=== PATIENT | female | born 1960 | race Caucasian/White ===

== ENCOUNTER 2016-09-27 23:00 | Inpatient (IN) | payer MEDICARE, OTHER ==
[2016-09-25 20:34] LABS: BD FL LYMPH (NOT ORD) 13 %; BF BASO (NOT OF) 0 %; BF LARGE MONONUCLEAR 8 %; BODY FLUID EOS (NOT ORD) 0 %; BODY FLUID SEG (NOT ORD) 79 %
[2016-09-25 20:35] LABS: BD FL SOURCE (NOT ORD) JOINT; BF TOTAL CELL CT (NOT ORD 1506 /MM3; BODY FLUID RBC (NOT ORD) 86000 /MM3
--- NOTE | ~2016-09-27 | OP ---
Record Of Operation [facility] [address] [place]. [address] NAME: JUSTYNA PUENTE : 58 STATUS : ADM Radha PAT#: [id number] AGE: 56 ADM/REG DATE : 09/28/16 MR#: [id number] REPORT SERV DATE: 09/28/16 DICTATED BY: ALEE GARCIA DATE: 09/28/16 REPORT STATUS : Draft TRANSCRIBED BY: MODL DATE: 09/28/16 DATE OF PROCEDURE: 09/28/2016 PREOPERATIVE DIAGNOSIS: Right septic prepatellar bursitis. POSTOPERATIVE DIAGNOSIS: Right septic prepatellar bursitis without extension to underlying hardware and prosthesis. PROCEDURE PERFORMED: Right prepatellar bursal irrigation and debridement with closure over Hemovac drain. SURGEON: Alee Garcia M.D. COMPUTERIZED MACHINE FABRIC CUTTER: Hugh Dyer. ANESTHESIA: General. PROCEDURE IN DETAIL: The patient is clearly identified, and after obtaining informed consent, she is brought to the operating room at [facility] where she is induced under general anesthesia, has her right lower extremity prepped and draped in the usual manner. Her previously utilized incision is marked and subsequently utilizing approximately 3 inches of the anterior aspect of the incision where it is erythematous and full with the medial punctate wound with pus. Skin was divided gently into a small pocket of approximately 8 x 20 cm in size, not very thick, containing watery pus. This communicates directly to the small punctate wound, which is then explored. There was some PDS suture through the area from previous incision, this was all carefully removed and the skin edges are carefully debrided of a few millimeter circumferentially back to good solid tissues. Careful inspection reveals no evidence of any extension through or near the fascial planes in towards the total knee arthroplasty or hardware of the fracture that was present previously and healed. This all concluded, the wound was copiously irrigated extensively and then carefully closed over medium Hemovac with PDS and jo including the small elliptical wound more medially around the site of drainage. This concluded, the leg was carefully cleansed and dressed. The patient was allowed to awaken and was transferred to the recovery room in stable condition having tolerated the procedure well. ESTIMATED BLOOD LOSS: 25 mL. FLUIDS: 1300 mL. TOURNIQUET TIME: 11 minutes (the tourniquet is deflated after debridements performed). PATHOLOGY: Sent specimen. MICROBIOLOGY: Sent specimen. COMPLICATIONS: None. Record Of Operation [address] [place]. [address] NAME: JUSTYNA PUENTE : 58 STATUS : ADM Radha PAT#: [id number] AGE: 56 ADM/REG DATE : 09/28/16 MR#: [id number] REPORT SERV DATE: 09/28/16 DICTATED BY: ALEE GARCIA DATE: 09/28/16 REPORT STATUS : Draft TRANSCRIBED BY: MODL DATE: 09/28/16 SPONGE AND NEEDLE COUNTS: Reportedly correct. ANTIBIOTICS: Administered appropriately preoperatively and continued postoperatively in light of infection. AMBER/FREDERICK Alee Garcia M.D. / [id number] CC: Galina Chavez MONICA N
--- NOTE | ~2016-09-27 | DS ---
Discharge Summary [address] [place]. [address] NAME: JUSTYNA PUENTE : 58 STATUS : DIS IN PAT#: [id number] AGE: 56 ADM/REG DATE : 09/28/16 MR#: [id number] REPORT SERV DATE: 10/11/16 DICTATED BY: XU LYNCH DATE: 10/10/16 REPORT STATUS : Draft TRANSCRIBED BY: FREDERICK DATE: 10/10/16 Data Collection from hospitalization DISCHARGE DIAGNOSES: 1. Right septic prepatellar bursitis without extension to underlying hardware and prosthesis. 2. Hypertension. 3. Fibromyalgia. 4. Depression. 5. Arthritis. 6. Hiatal hernia. 7. Sleep apnea. CONSULTATIONS: Milan Blanton M.D. PROCEDURES: Right prepatellar bursal irrigation and debridement with closure over Hemovac drain 09/28/2016. PATHOLOGY: DISCHARGE MEDICATIONS: 1. Tylenol 1000 mg every four hours as needed. 2. DuoNeb inhaled solution one nebulized inhaler every four hours as needed. 3. ProAir two puffs via inhaler every four hours as needed. 4. Xanax 2 mg three times a day. 5. Lipitor 10 mg every morning. 6. Soma 350 mg four times a day. 7. Restasis one drop twice a day. 8. Clarinex 5 mg daily. 9. Dexilant 120 mg daily. 10.Docusate sodium 100 mg twice a day. 11.Ferrous sulfate 300 mg twice a day. 12.Flonase nasal spray two sprays nasally daily as needed. 13.Neurontin 800 mg four times a day. 14.Tresiba 80 units subcutaneously at bedtime. 15.Humalog per sliding scale as instructed. 16.Atrovent two puffs via inhaler every four hours as needed. 17.Xalatan one drop at bedtime. 18.Victoza 1.8 mg subcutaneously every morning. 19.Zestril 10 mg every morning. 20.Multivitamins as instructed. 21.Oxycodone 5 mg every four hours as needed. 22.Requip 4 mg at bedtime. 23.VESIcare 5 mg at bedtime. 24.Coumadin 5 mg daily as instructed. CONDITION AT DISCHARGE: Stable. Discharge Summary [place] [id number] [place]. [address] NAME: JUSTYNA PUENTE : 58 STATUS : DIS IN PAT#: [id number] AGE: 56 ADM/REG DATE : 09/28/16 MR#: [id number] REPORT SERV DATE: 10/11/16 DICTATED BY: XU LYNCH DATE: 10/10/16 REPORT STATUS : Draft TRANSCRIBED BY: MODMilagro DATE: 10/10/16 DISPOSITION: The patient was discharged home on an 1800-calorie diabetic diet with activities as instructed, to be followed by home health care. HOSPITAL COURSE: This is a 56-year-old female who has had multiple surgeries of the right knee. She had a total knee arthroplasty and then had revision and also a fracture. On 08/22/2016, she had a debridement and excision of prepatellar bursa by Dr. Lynch. She began having erythema and warmth around the knee and had it aspirated the week of this admission in the office by Dr. Tree Rodriguez. The aspiration was 1500 white blood cells, but it did grow out Staph aureus. She has been on oral antibiotics since that time. She came to the emergency room at this time due to new drainage that had been going on for 2 days and increasing erythema, pain, and warmth. She was admitted to the hospital for further evaluation and treatment. Upon admission, she was taken to the operating room by Dr. Andre Garcia where she underwent the above-mentioned procedure. She tolerated this well and there were no complications. White count was 15.7. Blood pressure was controlled. Postop day #1, she was doing well postoperatively. IV antibiotics were continued. She was evaluated by Occupational and Physical Therapy. She was seen by Dr. Milan Blanton. The patient was felt to have right septic prepatellar bursitis with MRSA. He recommended at least three weeks of antibiotic treatment. The patient has rheumatoid arthritis. She was asked to hold the [employer]. She has multiple prosthetic joints without signs of infection. On 09/30/2016, she was doing well. White count was 6.3. She had no edema. She remained afebrile. Her right knee culture had revealed MRSA. She had no acute complaints. She had no new joint pain. She had good range of motion of the right knee. She continued to progress. Discharge planning was performed. On 10/02/2016, a PICC line had been inserted. She was alert and cooperative. She had no focal deficits. She had normal distal pulses. We encouraged her to mobilize with Physical Therapy. IV vancomycin continued. Leukocytosis had resolved. Discharge instructions were given. Due to her improved and stable condition, she was discharged home to be followed by home health care with the above-stated instructions. Information collected by: Celia Harris I submit the above information as my discharge summary. RUSSELL/FREDERICK Marcela Lynch M.D. / [id number] CC: Galina Chavez NP Paul Cornea, M.D.
--- NOTE | ~2016-09-27 | HP ---
History And Physical [place] [id number] [facility] [place]. [address] NAME: JUSTYNA PUENTE : 58 STATUS : ADM Radha PAT#: [id number] AGE: 56 ADM/REG DATE : 09/28/16 MR#: [id number] REPORT SERV DATE: 09/28/16 DICTATED BY: DUSTY HANSEN DATE: 09/28/16 REPORT STATUS : Draft TRANSCRIBED BY: MODMilagro DATE: 09/28/16 DATE OF ADMISSION: 09/28/2016 CHIEF COMPLAINT: Right knee erythema warmth and drainage. HISTORY: The patient is a 56-year-old who has had multiple surgeries to the right knee. She had a total knee arthroplasty and then had a revision and also a fracture. She recently had back on 08/22 about 6 weeks ago she had a debridement and excision of prepatellar bursa by Dr. Ulloa. She started having erythema, warmth around the knee and had it aspirated this week in the office by OPAL Eugene. The aspiration was 1500 white blood cells, but it did grow out Staph aureus. She has been on oral antibiotics since that time. She came to the emergency department due to the new drainage that had been going on for 2 days, increasing erythema and pain and warmth. PAST MEDICAL HISTORY: Hypertension, fibromyalgia, depression, arthritis of multiple joints, hiatal hernia, sleep apnea. SURGICAL HISTORY: She has had bilateral total shoulders, bilateral total knees with revision on the right x2 and then a fracture. She has had a left total hip arthroplasty. Multiple other surgeries, carpal tunnel, cataracts, tubal ligation. ALLERGIES: GLUCOSTEROIDS, NSAIDS, MORPHINE, CECLOR. MEDICATIONS: Victoza, Humalog, Tresiba which is insulin degludec, VESIcare 5 mg, lisinopril, Flonase, Lipitor, cyclosporine ophthalmic solution, Xalatan, Neurontin, Soma, Dexilant, doxycycline, albuterol, ipratropium, Tylenol, DuoNeb, Requip. REVIEW OF SYSTEMS: Times 10 negative except for above. SOCIAL HISTORY: She is a nonsmoker and nondrinker. FAMILY HISTORY: Noncontributory. PHYSICAL EXAMINATION: GENERAL: Well-developed, well-nourished female, in no acute distress. HEENT: Normocephalic, atraumatic. RESPIRATORY: Nonlabored respirations. Equal chest rise bilaterally. EXTREMITIES: No cyanosis, clubbing, or edema. Multiple incisions over her knees and her hip, left hip. She has erythema over the right knee. MUSCULOSKELETAL: Erythema over the anterior portion of the right knee. Drainage from the center of the wound. Pain with range of motion. Tenderness to palpation around the knee. 2+ pulses. NEURO: Alert and oriented x3. PSYCH: Appropriate mood and affect. SKIN: Erythema around the right knee. No other rashes or lesions. Healed incisions over History And Physical [address] [address] NAME: JUSTYNA PUENTE : 58 STATUS : ADM Radha PAT#: [id number] AGE: 56 ADM/REG DATE : 09/28/16 MR#: [id number] REPORT SERV DATE: 09/28/16 DICTATED BY: DUSTY HANSEN DATE: 09/28/16 REPORT STATUS : Draft TRANSCRIBED BY: FREDERICK DATE: 09/28/16 both knees and left hip. DATA: X-rays revealed history of right revision total knee arthroplasty with lateral plate. ASSESSMENT AND PLAN: Cellulitis with drainage of the right knee. She had vancomycin in the emergency department. I am going to have her discuss her case with Dr. Ulloa and then we will keep her n.p.o. for possible surgery. FERN/FREDERICK Dusty Hansen MD / [id number] CC: Galina Chavez
[2016-09-27 20:35] LABS: BASOPHILS 0.3 %; BASOPHILS ABSOLUTE 0.04 10/3/uL (0.0-0.16); EOSINOPHILS 1.9 %; ER CBC TAT 0 Hrs 10 Mins; HEMATOCRIT 37.7 % (36.0-48.0); HEMOGLOBIN 12.2 g/dL (12.0-16.0); IMMATURE GRANULOCYTES 0.4 %; IMMATURE GRANULOCYTES ABSOLUTE 0.06 10/3/uL (0.0-0.11); LYMPHOCYTES 16.5 %; MANUAL DIFF NO %; MEAN CORPUS HGB CONC 32.4 g/dL (32.0-36.0); MEAN CORPUSCULAR HEMOGLOB 26.7 pg (26.0-34.0); MEAN CORPUSCULAR VOLUME 82.5 fL (80-100); MEAN PLATELET VOLUME 9.4 fL (9.2-13.0); MONOCYTES 6.5 %; MONOCYTES ABSOLUTE 1.03 10/3/uL (0.21-1.20); NEUTROPHILS 74.4 %; NEUTROPHILS ABSOLUTE 11.71 10/3/uL (2.02-8.40); PLATELET COUNT 248 10/3/uL (150-400); RBC DISTRIBUTION WIDTH 14.1 % (12.0-16.0); RED CELL COUNT 4.57 10/6/uL (4.0-5.6); WHITE BLOOD CELLS 15.7 10/3/uL (4.5-10.5)
[2016-09-27 20:43] LABS: INTERNATIONAL NORMAL RATI 2.1 UNITS (-); PARTIAL THROMBO TIME 42.2 SEC (22.5-37.2)
[2016-09-27 20:45] LABS: PROTIME (NOT ORD) 23.4 SEC (12.0-14.5)
[2016-09-27 20:50] LABS: A/G RATIO 0.6 (0.7-1.9); ALBUMIN 3.2 G/DL (3.5-5.0); ALKALINE PHOSPHATASE 171 U/L (45-117); BUN (BLOOD UREA NITROGEN) 20 MG/DL (6-23); CALCIUM, SERUM 9.5 MG/DL (8.5-10.4); CHLORIDE, SERUM 94 MMOL/L (96-112); CO2 (CARBON DIOXIDE) 31 MMOL/L (24-34); GFR AFRICAN AMERICAN 95 ML/MIN (>=60); GFR NON AFRICAN AMERICAN 82 ML/MIN (>=60); GLOBULIN 5.1 G/DL (2.5-4.1); GLUCOSE, SERUM 138 MG/DL (60-99); LACTATE 1.2 MMOL/L (0.3-2.4); SGOT(AST) 21 U/L (5-40); SGPT(ALT) 41 U/L (5-65); SODIUM, SERUM 137 MMOL/L (135-148); TOTAL BILIRUBIN 0.3 MG/DL (0-1.2); TOTAL PROTEIN 8.3 G/DL (6.0-8.5)
[~2016-09-27 23:00] MED LIST: ABILIFY10 PO; ACCUNE1 INH; ACCUNEB INH; ACET500CAP PO; ALBUTEROL5 INH; AMBIEN CR12.5 MG PO; AZELASTINE OPH; Ambien; C5; CLARINEX5 MG PO; COMBIPATCH TD; CYMBALTA60 PO; DUONEB INH; DURA100 TOP; FLONASE NAS; FLOVENT DISK50 MCG INH; FLURBIPROFEN100 MG OR; GAS X PO; GAS-X80 MG PO; HUMALOG SC; KOMBIGLYZE XR1 EAC2 PO; LEVEMIR SC; LIPITOR10 PO; LORCET PO; LORTAB 5 PO; LYRICA200 MG PO; MAX25 PO; MOBIC15 MG PO; NEUR600 PO; NEUR800 PO; ORENCIA250 MG IV; OS500+D PO; PATANOL OPH; PCET PO; PHENTERMINE37.5 MG PO; PREV30 PO; PRILO PO; PRILOSEC40 MG PO; PROAIR HFA INH; PROVIGIL2 PO; REMICADE IV; REQUIP4 MG PO; RESTASIS OPH; SAXENDA3 MG/0.5 M SQ; SOMATAB PO; SUCR PO; TOVIAZ PO; TRESIBA FL200 UNIT/1 SQ; TYLENOL PM PO; VESICARE10 MG PO; VESICARE5 PO; VICTOZA18 MG/3 ML SC; VITAMIN B-12 INJ IM; VITAMIN B-121000 MC1 SL; VOLT50 PO; VOLT75 PO; VOLTAREN1 % TOP; XALAT OPH; XANAX2 MG PO; XELJANZ5 MG PO; ZESTRIL10 MG PO; ZYRTEC ALLGY10 MG PO; [UNRECOGNIZED DRUG - OTHER] PO
[2016-09-28] MEDS ORDERED: VICTOZA18 MG/3 ML SC (01:41)
[2016-09-28] MEDS ORDERED: HUMALOG SC (01:41)
[2016-09-28] MEDS ORDERED: VESICARE5 PO (01:42)
[2016-09-28] MEDS ORDERED: LIPITOR10 PO (01:42)
[2016-09-28] MEDS ORDERED: ZESTRIL10 MG PO (01:42)
[2016-09-28] MEDS ORDERED: FLONASE NAS (01:42)
[2016-09-28] MEDS ORDERED: TRESIBA FL200 UNIT/1 SC (01:42)
[2016-09-28] MEDS ORDERED: XALAT OPH (01:43)
[2016-09-28] MEDS ORDERED: RESTASIS OPH (01:43)
[2016-09-28] MEDS ORDERED: NEUR800 PO (01:43)
[2016-09-28] MEDS ORDERED: SOMATAB PO (01:45)
[2016-09-28] MEDS ORDERED: KAPIDEX60 MG PO ×2 (01:46→12:50)
[2016-09-28] MEDS ORDERED: MONODOX100 MG PO (01:46)
[2016-09-28] MEDS ORDERED: VOLT75 PO (01:46)
[2016-09-28] MEDS ORDERED: DUONEB INH (01:47)
[2016-09-28] MEDS ORDERED: IPRA17AE INH ×2 (01:47→09:23)
[2016-09-28] MEDS ORDERED: PROAIR HFA INH (01:47)
[2016-09-28] MEDS ORDERED: REQUIP4 MG PO (01:47)
[2016-09-28] MEDS ORDERED: ACET500CAP PO (01:48)
[2016-09-28] MEDS ORDERED: *UNABLE1 (01:48)
[2016-09-28] MEDS ORDERED: ASPERCREME TOP (01:51)
[2016-09-28] MEDS ORDERED: COUMADIN4 MG PO (01:55)
[2016-09-28 10:24] LABS: BASOPHILS 0.5 %; BASOPHILS ABSOLUTE 0.05 10/3/uL (0.0-0.16); EOSINOPHILS 2.6 %; EOSINOPHILS ABSOLUTE 0.29 10/3/uL (0.0-0.53); HEMATOCRIT 34.2 % (36.0-48.0); IMMATURE GRANULOCYTES 0.4 %; IMMATURE GRANULOCYTES ABSOLUTE 0.04 10/3/uL (0.0-0.11); LYMPHOCYTES 19.8 %; LYMPHOCYTES ABSOLUTE 2.19 10/3/uL (0.67-4.30); MEAN CORPUS HGB CONC 32.2 g/dL (32.0-36.0); MEAN CORPUSCULAR HEMOGLOB 26.4 pg (26.0-34.0); MEAN CORPUSCULAR VOLUME 82.2 fL (80-100); MEAN PLATELET VOLUME 9.2 fL (9.2-13.0); MONOCYTES 6.7 %; MONOCYTES ABSOLUTE 0.74 10/3/uL (0.21-1.20); NEUTROPHILS ABSOLUTE 7.76 10/3/uL (2.02-8.40); PLATELET COUNT 231 10/3/uL (150-400); RBC DISTRIBUTION WIDTH 14.1 % (12.0-16.0); RED CELL COUNT 4.16 10/6/uL (4.0-5.6); WHITE BLOOD CELLS 11.1 10/3/uL (4.5-10.5)
[2016-09-28 10:25] LABS: MANUAL DIFF NO %
[2016-09-28 10:29] LABS: CALCIUM, SERUM 8.9 MG/DL (8.5-10.4); CHLORIDE, SERUM 100 MMOL/L (96-112); CO2 (CARBON DIOXIDE) 27 MMOL/L (24-34); CREATININE 0.59 MG/DL (0.55-1.02); GFR AFRICAN AMERICAN 118 ML/MIN (>=60); GFR NON AFRICAN AMERICAN 102 ML/MIN (>=60); POTASSIUM, SERUM 3.8 MMOL/L (3.5-5.3); SODIUM, SERUM 138 MMOL/L (135-148)
[2016-09-28 10:30] LABS: BUN (BLOOD UREA NITROGEN) 16 MG/DL (6-23); GLUCOSE, SERUM 81 MG/DL (60-99)
[2016-09-28] MEDS ORDERED: XANAX2 MG PO (12:50)
[2016-09-28] MEDS ORDERED: CLARINEX5 MG PO (12:50)
[2016-09-29 05:39] LABS: BASOPHILS 0.5 %; BASOPHILS ABSOLUTE 0.04 10/3/uL (0.0-0.16); EOSINOPHILS 3.1 %; EOSINOPHILS ABSOLUTE 0.25 10/3/uL (0.0-0.53); HEMOGLOBIN 9.9 g/dL (12.0-16.0); IMMATURE GRANULOCYTES 0.5 %; IMMATURE GRANULOCYTES ABSOLUTE 0.04 10/3/uL (0.0-0.11); LYMPHOCYTES 23.2 %; LYMPHOCYTES ABSOLUTE 1.89 10/3/uL (0.67-4.30); MEAN CORPUS HGB CONC 33.1 g/dL (32.0-36.0); MEAN CORPUSCULAR HEMOGLOB 27.7 pg (26.0-34.0); MEAN CORPUSCULAR VOLUME 83.8 fL (80-100); MEAN PLATELET VOLUME 9.2 fL (9.2-13.0); MONOCYTES 9.8 %; NEUTROPHILS 62.9 %; NEUTROPHILS ABSOLUTE 5.11 10/3/uL (2.02-8.40); PLATELET COUNT 221 10/3/uL (150-400); RBC DISTRIBUTION WIDTH 14.4 % (12.0-16.0); RED CELL COUNT 3.57 10/6/uL (4.0-5.6); WHITE BLOOD CELLS 8.1 10/3/uL (4.5-10.5)
[2016-09-29 05:44] LABS: HEMATOCRIT 29.9 % (36.0-48.0); MANUAL DIFF NO %
[2016-09-29 05:46] LABS: BUN (BLOOD UREA NITROGEN) 15 MG/DL (6-23); CALCIUM, SERUM 8.4 MG/DL (8.5-10.4); CHLORIDE, SERUM 100 MMOL/L (96-112); CO2 (CARBON DIOXIDE) 27 MMOL/L (24-34); CREATININE 0.65 MG/DL (0.55-1.02); GFR AFRICAN AMERICAN 114 ML/MIN (>=60); GFR NON AFRICAN AMERICAN 99 ML/MIN (>=60); POTASSIUM, SERUM 4.1 MMOL/L (3.5-5.3); SODIUM, SERUM 138 MMOL/L (135-148)
[2016-09-29 05:48] LABS: GLUCOSE, SERUM 102 MG/DL (60-99)
[2016-09-30 06:24] LABS: BASOPHILS 0.2 %; BASOPHILS ABSOLUTE 0.01 10/3/uL (0.0-0.16); EOSINOPHILS 5.4 %; EOSINOPHILS ABSOLUTE 0.34 10/3/uL (0.0-0.53); HEMOGLOBIN 9.9 g/dL (12.0-16.0); IMMATURE GRANULOCYTES 0.5 %; IMMATURE GRANULOCYTES ABSOLUTE 0.03 10/3/uL (0.0-0.11); LYMPHOCYTES 32.2 %; LYMPHOCYTES ABSOLUTE 2.04 10/3/uL (0.67-4.30); MEAN CORPUS HGB CONC 31.9 g/dL (32.0-36.0); MEAN CORPUSCULAR HEMOGLOB 26.7 pg (26.0-34.0); MEAN CORPUSCULAR VOLUME 83.6 fL (80-100); MEAN PLATELET VOLUME 8.9 fL (9.2-13.0); MONOCYTES 11.5 %; MONOCYTES ABSOLUTE 0.73 10/3/uL (0.21-1.20); NEUTROPHILS 50.2 %; NEUTROPHILS ABSOLUTE 3.18 10/3/uL (2.02-8.40); PLATELET COUNT 262 10/3/uL (150-400); RBC DISTRIBUTION WIDTH 14.3 % (12.0-16.0); RED CELL COUNT 3.71 10/6/uL (4.0-5.6); WHITE BLOOD CELLS 6.3 10/3/uL (4.5-10.5)
[2016-09-30 06:26] LABS: MANUAL DIFF NO %
[2016-09-30 06:37] LABS: BUN (BLOOD UREA NITROGEN) 14 MG/DL (6-23); CHLORIDE, SERUM 102 MMOL/L (96-112); CO2 (CARBON DIOXIDE) 29 MMOL/L (24-34); CREATININE 0.63 MG/DL (0.55-1.02); GFR AFRICAN AMERICAN 115 ML/MIN (>=60); GFR NON AFRICAN AMERICAN 100 ML/MIN (>=60); GLUCOSE, SERUM 139 MG/DL (60-99); POTASSIUM, SERUM 4.5 MMOL/L (3.5-5.3); SODIUM, SERUM 139 MMOL/L (135-148)
[2016-10-01 05:33] LABS: BASOPHILS 0.4 %; BASOPHILS ABSOLUTE 0.03 10/3/uL (0.0-0.16); EOSINOPHILS 4.5 %; EOSINOPHILS ABSOLUTE 0.32 10/3/uL (0.0-0.53); HEMATOCRIT 32.2 % (36.0-48.0); HEMOGLOBIN 10.3 g/dL (12.0-16.0); IMMATURE GRANULOCYTES 0.7 %; IMMATURE GRANULOCYTES ABSOLUTE 0.05 10/3/uL (0.0-0.11); LYMPHOCYTES 27.5 %; LYMPHOCYTES ABSOLUTE 1.94 10/3/uL (0.67-4.30); MANUAL DIFF NO %; MEAN CORPUSCULAR HEMOGLOB 26.8 pg (26.0-34.0); MEAN CORPUSCULAR VOLUME 83.6 fL (80-100); MEAN PLATELET VOLUME 8.8 fL (9.2-13.0); MONOCYTES 10.8 %; MONOCYTES ABSOLUTE 0.76 10/3/uL (0.21-1.20); NEUTROPHILS 56.1 %; NEUTROPHILS ABSOLUTE 3.95 10/3/uL (2.02-8.40); PLATELET COUNT 283 10/3/uL (150-400); RBC DISTRIBUTION WIDTH 14.2 % (12.0-16.0); RED CELL COUNT 3.85 10/6/uL (4.0-5.6); WHITE BLOOD CELLS 7.1 10/3/uL (4.5-10.5)
[2016-10-01 05:40] LABS: BUN (BLOOD UREA NITROGEN) 15 MG/DL (6-23); CHLORIDE, SERUM 101 MMOL/L (96-112); CO2 (CARBON DIOXIDE) 31 MMOL/L (24-34); CREATININE 0.63 MG/DL (0.55-1.02); GFR AFRICAN AMERICAN 115 ML/MIN (>=60); GFR NON AFRICAN AMERICAN 100 ML/MIN (>=60); POTASSIUM, SERUM 4.1 MMOL/L (3.5-5.3); SODIUM, SERUM 140 MMOL/L (135-148)
[2016-10-01 05:41] LABS: GLUCOSE, SERUM 91 MG/DL (60-99); INTERNATIONAL NORMAL RATI 1.1 UNITS (-)
[2016-10-01 05:43] LABS: PROTIME (NOT ORD) 14.2 SEC (12.0-14.5)
[2016-10-02 02:47] LABS: INTERNATIONAL NORMAL RATI 1.1 UNITS (-); PROTIME (NOT ORD) 14.2 SEC (12.0-14.5)
[2016-10-02] MEDS ORDERED: D.O.S.100 MG PO (15:47)
[2016-10-02] MEDS ORDERED: FESO4 PO (15:48)
[2016-10-02] MEDS ORDERED: MULTI-VIT HP PO (15:50)
[2016-10-02] MEDS ORDERED: C5 (15:53)
[2016-10-02] MEDS ORDERED: OXYIR5 MG PO (15:56)
== END 2016-10-02 18:52 | disposition home health service (06) | DRG 501 ==
LOC: ER 23:00 → 1SO 09-28 02:11
PROVIDERS: Emergency Medicine; Nurse Practitioner; Orthopaedic Surgery; Physician Assistant; Specialist
PROC: 0M9N00Z Drainage of Right Knee Bursa and Ligament with Drainage Device, Open Approach (ICD-10-PCS; principal; 2016-09-28 15:45)
PROC: 02HV33Z Insertion of Infusion Device into Superior Vena Cava, Percutaneous Approach (ICD-10-PCS; 2016-10-02)
PROC: 4A02X4A Measurement of Cardiac Electrical Activity, Guidance, External Approach (ICD-10-PCS; 2016-10-02)
DX: M70.41 Prepatellar bursitis, right knee (principal); L02.415 Cutaneous abscess of right lower limb; Z68.42 Body mass index [BMI] 45.0-49.9, adult; L03.115 Cellulitis of right lower limb; E66.01 Morbid (severe) obesity due to excess calories; I10 Essential (primary) hypertension; G62.9 Polyneuropathy, unspecified; B95.62 Methicillin resistant Staphylococcus aureus infection as the cause of diseases classified elsewhere; E11.9 Type 2 diabetes mellitus without complications; K21.9 Gastro-esophageal reflux disease without esophagitis; J45.909 Unspecified asthma, uncomplicated; G47.33 Obstructive sleep apnea (adult) (pediatric); M06.9 Rheumatoid arthritis, unspecified; E78.5 Hyperlipidemia, unspecified; Z79.01 Long term (current) use of anticoagulants; H40.9 Unspecified glaucoma; R12 Heartburn; I25.2 Old myocardial infarction; Z79.4 Long term (current) use of insulin; Z79.899 Other long term (current) drug therapy; Z96.612 Presence of left artificial shoulder joint; Z96.611 Presence of right artificial shoulder joint; Z96.642 Presence of left artificial hip joint; Z96.653 Presence of artificial knee joint, bilateral; Z88.8 Allergy status to other drugs, medicaments and biological substances; Z88.5 Allergy status to narcotic agent; Z88.1 Allergy status to other antibiotic agents
CPT/HCPCS: 36569; 71020; 73560-RT; 80048; 80053; 80202; 81001; 82962; 83605; 83690; 85025; 85610; 85730; 87015; 87040; 87070; 87075; 87077; 87102; 87116; 87186; 87205; 89051; 89060; 93005; 96374; 97110-GP; 97116-GP; 97162-GP; 97165-GO; 99285; A9270-GY; C1751; G8978-CK-GP; G8979-CJ-GP; G8987-CK-GO; G8988-CK-GO; G8989-CK-GO; J0330; J0690; J1170; J2250; J2370; J2405; J2710; J3010; J3370

== ENCOUNTER 2016-10-23 15:59 | Emergency (ER) | payer MEDICARE, OTHER ==
[2016-10-23 13:50] LABS: INTERNATIONAL NORMAL RATI 1.4 UNITS (-); PARTIAL THROMBO TIME 32.3 SEC (22.5-37.2); PROTIME (NOT ORD) 16.6 SEC (12.0-14.5)
[2016-10-23 13:58] LABS: BASOPHILS 0.5 %; BASOPHILS ABSOLUTE 0.04 10/3/uL (0.0-0.16); EOSINOPHILS 4.1 %; EOSINOPHILS ABSOLUTE 0.31 10/3/uL (0.0-0.53); ER CBC TAT 0 Hrs 19 Mins; HEMATOCRIT 37.3 % (36.0-48.0); HEMOGLOBIN 12.3 g/dL (12.0-16.0); IMMATURE GRANULOCYTES 0.3 %; IMMATURE GRANULOCYTES ABSOLUTE 0.02 10/3/uL (0.0-0.11); LYMPHOCYTES 33.5 %; LYMPHOCYTES ABSOLUTE 2.51 10/3/uL (0.67-4.30); MANUAL DIFF NO %; MEAN CORPUSCULAR HEMOGLOB 26.8 pg (26.0-34.0); MEAN CORPUSCULAR VOLUME 81.3 fL (80-100); MEAN PLATELET VOLUME 8.9 fL (9.2-13.0); MONOCYTES ABSOLUTE 0.45 10/3/uL (0.21-1.20); NEUTROPHILS 55.6 %; NEUTROPHILS ABSOLUTE 4.17 10/3/uL (2.02-8.40); PLATELET COUNT 276 10/3/uL (150-400); RBC DISTRIBUTION WIDTH 14.3 % (12.0-16.0); RED CELL COUNT 4.59 10/6/uL (4.0-5.6); WHITE BLOOD CELLS 7.5 10/3/uL (4.5-10.5)
[2016-10-23 13:59] LABS: BUN (BLOOD UREA NITROGEN) 14 MG/DL (6-23); CALCIUM, SERUM 9.4 MG/DL (8.5-10.4); CHEST PAIN PROFILE TAT 0 Hrs 20 Mins; CHLORIDE, SERUM 101 MMOL/L (96-112); CO2 (CARBON DIOXIDE) 27 MMOL/L (24-34); CREATININE 0.58 MG/DL (0.55-1.02); GFR AFRICAN AMERICAN 119 ML/MIN (>=60); GFR NON AFRICAN AMERICAN 102 ML/MIN (>=60); GLUCOSE, SERUM 110 MG/DL (60-99); POTASSIUM, SERUM 4.3 MMOL/L (3.5-5.3); SODIUM, SERUM 137 MMOL/L (135-148); TROPONIN I <0.02 NG/ML (<0.05)
[~2016-10-23 15:59] MED LIST changes: +*UNABLE1; +ASPERCREME TOP; +COUMADIN4 MG PO; +D.O.S.100 MG PO; +FESO4 PO; +IPRA17AE INH; +KAPIDEX60 MG PO; +MONODOX100 MG PO; +MULTI-VIT HP PO; +OXYIR5 MG PO; +TRESIBA FL200 UNIT/1 SC
== END 2016-10-23 16:54 | disposition home or self-care (01) ==
LOC: ER 15:59
PROVIDERS: Emergency Medicine
DX: R07.89 Other chest pain (principal); Z76.5 Malingerer [conscious simulation]; J45.909 Unspecified asthma, uncomplicated; I10 Essential (primary) hypertension; F32.9 Major depressive disorder, single episode, unspecified; Z88.8 Allergy status to other drugs, medicaments and biological substances; Z88.6 Allergy status to analgesic agent
CPT/HCPCS: 71020; 80048; 83735; 84484; 85025; 85610; 85730; 93005; 99285